=== PATIENT | female | born 1945 | race Hispanic/Latino ===

== ENCOUNTER 2022-03-14 11:29 | Emergency (ER) | payer MEDICARE, OTHER ==
[~2022-03-14] VITALS: Ht 167.6 cm; Wt 83.9 kg
== END 2022-03-14 12:10 | disposition home or self-care (01) ==
LOC: ER 11:33
DX: I10 Essential (primary) hypertension (principal); K21.9 Gastro-esophageal reflux disease without esophagitis; F41.9 Anxiety disorder, unspecified
CPT/HCPCS: 99282

== ENCOUNTER 2024-02-20 18:05 | Emergency (ER) | payer MEDICARE ==
[~2024-02-20] VITALS: Ht 162.6 cm; Wt 82.6 kg
[2024-02-20 20:55] VITALS: PULSE 76; RESP 16; TEMP 98.6; O2SAT 100
== END 2024-02-20 21:12 | disposition home or self-care (01) ==
LOC: ER 18:14
DX: I10 Essential (primary) hypertension (principal); K21.9 Gastro-esophageal reflux disease without esophagitis; F41.9 Anxiety disorder, unspecified; R94.31 Abnormal electrocardiogram [ECG] [EKG]
CPT/HCPCS: 93005; 99282